=== PATIENT | male | born 1950 | race African-American/Black ===

== ENCOUNTER 2022-06-28 08:37 | Inpatient (IN) | payer BC, MEDICAID ==
[~2022-06-28] VITALS: Ht 177.8 cm; Wt 135.2 kg
[~2022-06-28 08:37] MED LIST: ATEN-42 PO; CINA30 PO; NIFE30TA94 PO; SEVE800T8 PO
[2022-06-28] MEDS ORDERED: SODIUM CHLORIDE 0.9% 1,000 ML IV ONE (08:45)
[2022-06-28 10:24] LABS: BASOPHILS % 1.2 % (0.0-2.0); EOSINOPHILS % 2.3 % (0.0-5.0); HEMATOCRIT. 28.3 % (42.0-52.0); LYMPHOCYTES % 13.6 % (20.0-50.0); MEAN CORPUSCULAR HEMOGLOBIN 24.8 pg (28.0-32.0); MEAN CORPUSCULAR VOLUME 78.3 fL (80.0-94.0); MEAN PLATELET VOLUME 7.7 fl (7.4-10.4); MONOCYTES % 9.8 % (2.0-8.0); NEUTROPHILS % 73.1 % (40.0-76.0); PLATELET 229 x1000/uL (130-400); RED BLOOD CELL COUNT 3.62 mill/uL (4.7-6.1); RED CELL DISTRIBUTION WIDTH 20.2 % (11.6-14.6)
[2022-06-28 10:26] LABS: CHLORIDE 95 mEq/L (98-107)
[2022-06-28 10:28] LABS: INR 1.2; PROTHROMBIN TIME 12.6 sec (9.6-11.0)
[2022-06-28] MEDS ORDERED: VANCOMYCIN 1G PREMIX 200 ML IV ONE (11:15)
[2022-06-28] MEDS ORDERED: PIPERACILLIN/TAZ 3.375G PREMIX 50 ML IV ONE (11:15)
[2022-06-28] MEDS ORDERED: SODIUM CHLORIDE 0.9% 1000ML BAG (SEPSIS BOLUS) IV ONE (11:30)
[2022-06-28] MEDS ORDERED: LIDOCAINE HCL 1% 10 MG/ML 10ML VIAL ONE (13:08)
[2022-06-28] MEDS ORDERED: ONDANSETRON HCL 4MG/2ML INJ IV PRN (13:45)
[2022-06-28] MEDS ORDERED: ACETAMINOPHEN 325MG TABLET PO PRN (13:45)
[2022-06-28 16:00] VITALS: BP 110/62
[2022-06-28 16:42] VITALS: BP 160/47
[2022-06-28 20:00] VITALS: BP 115/70
[2022-06-29] VITALS: BP 96/49
[2022-06-29] MEDS: EPOETIN ALFA-EPBX 4,000 UNIT/ML VIAL SUBCUT SCH (01:28)
[2022-06-29 04:00] VITALS: BP 97/55
[2022-06-29 06:28] LABS: HEMOGLOBIN. 9.7 g/dL (14.0-18.0); MEAN CORPUSCULAR HEMOGLOBIN 25.2 pg (28.0-32.0); MEAN PLATELET VOLUME 7.9 fl (7.4-10.4); PLATELET 205 x1000/uL (130-400); RED BLOOD CELL COUNT 3.85 mill/uL (4.7-6.1)
[2022-06-29 08:00] VITALS: BP 88/46
[2022-06-29] MEDS ORDERED: CEFTRIAXONE 1 G PREMIX 50 ML IV SCH (08:15)
[2022-06-29] MEDS ORDERED: AZITHROMYCIN 500 MG TABLET PO NR (08:30)
[2022-06-29] MEDS: CEFTRIAXONE 1,000 MG in DEXTROSE 5% WATER 50 ML IV SCH (10:04)
[2022-06-29 12:00] VITALS: BP 113/64
[2022-06-29 14:02] LABS: PHOSPHORUS 6.2 mg/dL (2.5-4.9)
[2022-06-29 14:36] LABS: NUCLEATED RED BLOOD CELLS 2 /100 WBC; PLATELET ESTIMATE NORMAL
[2022-06-29 16:00] VITALS: BP 129/78
[2022-06-29 20:00] VITALS: BP 119/77
[2022-06-29 22:49] LABS: HEPATITIS B SURFACE ANTIGEN NEGATIVE
[2022-06-30] VITALS (11 sets, daily range): BP systolic 77–125; BP diastolic 37–78
[2022-06-30 06:42] LABS: BASOPHILS % 1.3 % (0.0-2.0); EOSINOPHILS % 1.8 % (0.0-5.0); HEMATOCRIT. 28.4 % (42.0-52.0); HEMOGLOBIN. 9.2 g/dL (14.0-18.0); MEAN CORPUSCULAR HEMOGLOBIN 25.4 pg (28.0-32.0); MEAN CORPUSCULAR VOLUME 78.3 fL (80.0-94.0); MEAN PLATELET VOLUME 8.7 fl (7.4-10.4); MONOCYTES % 14.7 % (2.0-8.0); NEUTROPHILS % 68.2 % (40.0-76.0); PLATELET 237 x1000/uL (130-400); RED BLOOD CELL COUNT 3.63 mill/uL (4.7-6.1); RED CELL DISTRIBUTION WIDTH 19.6 % (11.6-14.6)
[2022-06-30] MEDS: MIDODRINE HCL 5MG TABLET PO SCH ×3 (08:07→18:52)
[2022-06-30] MEDS: AZITHROMYCIN 250 MG TABLET PO SCH (08:07)
[2022-06-30] MEDS ORDERED: MIDO5TAB4 PO (10:29)
[2022-06-30] MEDS ORDERED: LEVO250T74 MT ×2 (10:29)
[2022-06-30] MEDS: CEFTRIAXONE 1,000 MG in DEXTROSE 5% WATER 50 ML IV SCH (10:39)
[2022-06-30] MEDS ORDERED: DIGOXIN 500MCG/2ML AMP IV NR (17:45)
[2022-06-30] MEDS ORDERED: DIGOXIN 125MCG TABLET PO NR (19:00)
[2022-06-30] MEDS: EPOETIN ALFA-EPBX 4,000 UNIT/ML VIAL SUBCUT SCH (20:11)
[2022-06-30] MEDS ORDERED: ENOXAPARIN 150MG/ML SYR SUBCUT SCH (21:00)
[2022-07-01] VITALS (12 sets, daily range): BP systolic 101–129; BP diastolic 43–78
[2022-07-01] MEDS ORDERED: DIGOXIN 500MCG/2ML AMP IV NR (00:30)
[2022-07-01 07:11] LABS: HEMATOCRIT. 29.8 % (42.0-52.0); HEMOGLOBIN. 9.6 g/dL (14.0-18.0); MEAN CORPUSCULAR HEMOGLOBIN 24.8 pg (28.0-32.0); MEAN CORPUSCULAR VOLUME 77.4 fL (80.0-94.0); PLATELET 234 x1000/uL (130-400); RED BLOOD CELL COUNT 3.85 mill/uL (4.7-6.1); RED CELL DISTRIBUTION WIDTH 19.4 % (11.6-14.6)
[2022-07-01 07:45] LABS: PHOSPHORUS 8.4 mg/dL (2.5-4.9)
[2022-07-01] MEDS: AZITHROMYCIN 250 MG TABLET PO SCH (08:45)
[2022-07-01] MEDS: CEFTRIAXONE 1,000 MG in DEXTROSE 5% WATER 50 ML IV SCH (08:45)
[2022-07-01] MEDS: MIDODRINE HCL 5MG TABLET PO SCH ×4 (08:45→21:16)
[2022-07-01 09:07] LABS: IMMUNOGLOBULIN A 303 mg/dL (61-437); IMMUNOGLOBULIN G 2920 mg/dL (603-1613); IMMUNOGLOBULIN M 73 mg/dL (20-172)
[2022-07-01] MEDS: DILTIAZEM HCL 30MG TABLET PO SCH ×3 (13:33→23:53)
[2022-07-01] MEDS ORDERED: ENOXAPARIN 150MG/ML SYR SUBCUT SCH (15:19)
[2022-07-01 16:44] LABS: NUCLEATED RED BLOOD CELLS 1 /100 WBC; PLATELET ESTIMATE NORMAL
[2022-07-01] MEDS: ENOXAPARIN 150MG/ML SYR SUBCUT SCH (21:17)
[2022-07-02] VITALS: BP 99/46
[2022-07-02 04:00] VITALS: BP 91/50
[2022-07-02] MEDS: DILTIAZEM HCL 30MG TABLET PO SCH ×3 (05:00→18:38)
[2022-07-02 07:03] LABS: HEMATOCRIT. 29.7 % (42.0-52.0); HEMOGLOBIN. 9.5 g/dL (14.0-18.0); MEAN CORPUSCULAR HEMOGLOBIN 24.8 pg (28.0-32.0); MEAN CORPUSCULAR VOLUME 77.7 fL (80.0-94.0); PLATELET 217 x1000/uL (130-400); RED BLOOD CELL COUNT 3.82 mill/uL (4.7-6.1); RED CELL DISTRIBUTION WIDTH 19.9 % (11.6-14.6)
[2022-07-02 07:18] LABS: PHOSPHORUS 7.4 mg/dL (2.5-4.9)
[2022-07-02 08:00] VITALS: BP 102/61
[2022-07-02] MEDS ORDERED: DIGOXIN 125MCG TABLET PO NR (09:30)
[2022-07-02] MEDS: CEFTRIAXONE 1,000 MG in DEXTROSE 5% WATER 50 ML IV SCH (10:06)
[2022-07-02] MEDS: MIDODRINE HCL 5MG TABLET PO SCH ×3 (10:06→18:39)
[2022-07-02] MEDS: AZITHROMYCIN 250 MG TABLET PO SCH (10:14)
[2022-07-02 12:00] VITALS: BP 91/52
[2022-07-02] MEDS ORDERED: SODIUM POLYSTYRENE SULFONATE 15 G/60 ML BOT PO NR (15:00)
[2022-07-02 16:00] VITALS: BP 105/58
[2022-07-02] MEDS: DIGOXIN 125MCG TABLET PO SCH (18:38)
[2022-07-02 20:00] VITALS: BP 105/50
[2022-07-02] MEDS: EPOETIN ALFA-EPBX 4,000 UNIT/ML VIAL SUBCUT SCH (20:43)
[2022-07-02] MEDS: ENOXAPARIN 150MG/ML SYR SUBCUT SCH (20:43)
[2022-07-03] VITALS (17 sets, daily range): BP systolic 92–119; BP diastolic 50–70
[2022-07-03 05:18] LABS: NUCLEATED RED BLOOD CELLS 2 /100 WBC; PLATELET ESTIMATE NORMAL
[2022-07-03] MEDS: DILTIAZEM HCL 30MG TABLET PO SCH ×4 (05:33→17:12)
[2022-07-03] MEDS: AZITHROMYCIN 250 MG TABLET PO SCH (09:00)
[2022-07-03 09:09] LABS: HEMATOCRIT. 28.2 % (42.0-52.0); MEAN CORPUSCULAR HEMOGLOBIN 24.8 pg (28.0-32.0); MEAN CORPUSCULAR VOLUME 77.6 fL (80.0-94.0); MEAN PLATELET VOLUME 7.9 fl (7.4-10.4); PLATELET 217 x1000/uL (130-400); RED BLOOD CELL COUNT 3.63 mill/uL (4.7-6.1); RED CELL DISTRIBUTION WIDTH 19.4 % (11.6-14.6)
[2022-07-03] MEDS: MIDODRINE HCL 5MG TABLET PO SCH ×3 (09:30→17:12)
[2022-07-03 09:58] LABS: PHOSPHORUS 8.4 mg/dL (2.5-4.9)
[2022-07-03 10:56] LABS: PLATELET ESTIMATE NORMAL
[2022-07-03] MEDS: CEFTRIAXONE 1,000 MG in DEXTROSE 5% WATER 50 ML IV SCH (11:37)
[2022-07-03] MEDS: SEVELAMER CARBONATE 800 MG TABLET PO SCH (17:11)
[2022-07-03] MEDS: DIGOXIN 125MCG TABLET PO SCH (17:12)
[2022-07-03] MEDS: ENOXAPARIN 150MG/ML SYR SUBCUT SCH (21:55)
[2022-07-04] VITALS: BP 107/61
[2022-07-04 04:00] VITALS: BP 102/65
[2022-07-04] MEDS: DILTIAZEM HCL 30MG TABLET PO SCH ×4 (06:00→17:37)
[2022-07-04 08:00] VITALS: BP 104/62
[2022-07-04 09:05] LABS: BASOPHILS % 1.4 % (0.0-2.0); EOSINOPHILS % 1.9 % (0.0-5.0); HEMATOCRIT. 28.8 % (42.0-52.0); HEMOGLOBIN. 9.2 g/dL (14.0-18.0); LYMPHOCYTES % 15.7 % (20.0-50.0); MEAN CORPUSCULAR HEMOGLOBIN 24.9 pg (28.0-32.0); MEAN CORPUSCULAR VOLUME 77.6 fL (80.0-94.0); MEAN PLATELET VOLUME 7.9 fl (7.4-10.4); PLATELET 220 x1000/uL (130-400); RED BLOOD CELL COUNT 3.71 mill/uL (4.7-6.1); RED CELL DISTRIBUTION WIDTH 19.7 % (11.6-14.6)
[2022-07-04] MEDS: MIDODRINE HCL 5MG TABLET PO SCH ×3 (09:13→18:15)
[2022-07-04] MEDS: SEVELAMER CARBONATE 800 MG TABLET PO SCH ×3 (09:13→18:14)
[2022-07-04 09:20] LABS: PHOSPHORUS 6.7 mg/dL (2.5-4.9)
[2022-07-04 12:00] VITALS: BP 109/62
[2022-07-04 16:00] VITALS: BP 119/72
[2022-07-04] MEDS: DIGOXIN 125MCG TABLET PO SCH (18:14)
[2022-07-04 20:00] VITALS: BP 115/64
[2022-07-04] MEDS: ENOXAPARIN 150MG/ML SYR SUBCUT SCH (20:17)
[2022-07-05] VITALS (14 sets, daily range): BP systolic 97–127; BP diastolic 45–80
[2022-07-05] MEDS: DILTIAZEM HCL 30MG TABLET PO SCH ×2 (05:35)
[2022-07-05] MEDS: SEVELAMER CARBONATE 800 MG TABLET PO SCH ×3 (06:16→18:05)
[2022-07-05 07:10] LABS: HEMOGLOBIN. 9.2 g/dL (14.0-18.0); MEAN CORPUSCULAR HEMOGLOBIN 24.8 pg (28.0-32.0); MEAN CORPUSCULAR VOLUME 77.7 fL (80.0-94.0); MEAN PLATELET VOLUME 7.8 fl (7.4-10.4); PLATELET 204 x1000/uL (130-400); RED BLOOD CELL COUNT 3.73 mill/uL (4.7-6.1); RED CELL DISTRIBUTION WIDTH 19.4 % (11.6-14.6)
[2022-07-05 08:41] LABS: PHOSPHORUS 8.8 mg/dL (2.5-4.9)
[2022-07-05] MEDS: MIDODRINE HCL 5MG TABLET PO SCH ×3 (09:08→16:19)
[2022-07-05 09:37] LABS: NUCLEATED RED BLOOD CELLS 2 /100 WBC; PLATELET ESTIMATE NORMAL
[2022-07-05] MEDS: ENOXAPARIN 150MG/ML SYR SUBCUT SCH (20:11)
[2022-07-05] MEDS ORDERED: DILTIAZEM HCL 5MG/ML 5ML VIAL IV NR (22:00)
[2022-07-05] MEDS: ACETAMINOPHEN 325MG TABLET PO PRN (22:34)
[2022-07-06] VITALS: BP 106/62
[2022-07-06 04:00] VITALS: BP 145/88
[2022-07-06] MEDS: DILTIAZEM HCL 30MG TABLET PO SCH ×3 (05:49→17:16)
[2022-07-06] MEDS: SEVELAMER CARBONATE 800 MG TABLET PO SCH ×3 (06:24→17:27)
[2022-07-06 07:16] LABS: BASOPHILS % 1.4 % (0.0-2.0); EOSINOPHILS % 2.1 % (0.0-5.0); HEMATOCRIT. 28.9 % (42.0-52.0); HEMOGLOBIN. 9.3 g/dL (14.0-18.0); LYMPHOCYTES % 17.7 % (20.0-50.0); MEAN CORPUSCULAR VOLUME 77.9 fL (80.0-94.0); MEAN PLATELET VOLUME 7.8 fl (7.4-10.4); MONOCYTES % 12.8 % (2.0-8.0); PLATELET 198 x1000/uL (130-400); RED BLOOD CELL COUNT 3.71 mill/uL (4.7-6.1); RED CELL DISTRIBUTION WIDTH 20.5 % (11.6-14.6)
[2022-07-06 08:00] VITALS: BP 104/64
[2022-07-06] MEDS: MIDODRINE HCL 5MG TABLET PO SCH ×3 (08:38→17:16)
[2022-07-06 12:00] VITALS: BP 119/77
[2022-07-06] MEDS: ACETAMINOPHEN 325MG TABLET PO PRN (12:57)
[2022-07-06 16:00] VITALS: BP 142/79
[2022-07-06 20:00] VITALS: BP 112/63
[2022-07-06] MEDS: ENOXAPARIN 150MG/ML SYR SUBCUT SCH (21:06)
[2022-07-07] VITALS (13 sets, daily range): BP systolic 101–130; BP diastolic 54–77
[2022-07-07] MEDS: DILTIAZEM HCL 30MG TABLET PO SCH ×4 (06:00→17:41)
[2022-07-07 06:35] LABS: BASOPHILS % 0.9 % (0.0-2.0); EOSINOPHILS % 1.9 % (0.0-5.0); HEMATOCRIT. 28.1 % (42.0-52.0); MEAN CORPUSCULAR HEMOGLOBIN 25.1 pg (28.0-32.0); MEAN CORPUSCULAR VOLUME 77.8 fL (80.0-94.0); MONOCYTES % 14.7 % (2.0-8.0); NEUTROPHILS % 71.5 % (40.0-76.0); PLATELET 178 x1000/uL (130-400); RED BLOOD CELL COUNT 3.61 mill/uL (4.7-6.1); RED CELL DISTRIBUTION WIDTH 20.4 % (11.6-14.6)
[2022-07-07 07:03] LABS: PHOSPHORUS 8.4 mg/dL (2.5-4.9)
[2022-07-07] MEDS: MIDODRINE HCL 5MG TABLET PO SCH ×3 (09:51→17:42)
[2022-07-07] MEDS ORDERED: APIX5TAB MT (11:43)
[2022-07-07] MEDS ORDERED: CARV6.2548 MT (11:43)
[2022-07-07] MEDS: SEVELAMER CARBONATE 800 MG TABLET PO SCH ×2 (12:53→17:40)
[2022-07-07] MEDS: ENOXAPARIN 150MG/ML SYR SUBCUT SCH (21:23)
[2022-07-08] VITALS: BP 102/56
[2022-07-08 04:00] VITALS: BP 109/61
[2022-07-08] MEDS: DILTIAZEM HCL 30MG TABLET PO SCH ×4 (06:00→17:11)
[2022-07-08 06:27] LABS: HEMATOCRIT. 26.7 % (42.0-52.0); HEMOGLOBIN. 8.8 g/dL (14.0-18.0); MEAN CORPUSCULAR HEMOGLOBIN 25.1 pg (28.0-32.0); MEAN CORPUSCULAR VOLUME 76.4 fL (80.0-94.0); PLATELET 189 x1000/uL (130-400); RED BLOOD CELL COUNT 3.49 mill/uL (4.7-6.1); RED CELL DISTRIBUTION WIDTH 20.1 % (11.6-14.6)
[2022-07-08] MEDS: SEVELAMER CARBONATE 800 MG TABLET PO SCH ×3 (06:54→17:10)
[2022-07-08 07:33] LABS: PHOSPHORUS 7.6 mg/dL (2.5-4.9)
[2022-07-08 08:00] VITALS: BP 103/67
[2022-07-08] MEDS: MIDODRINE HCL 5MG TABLET PO SCH ×3 (08:28→17:13)
[2022-07-08 12:00] VITALS: BP 125/73
[2022-07-08 12:36] LABS: PLATELET ESTIMATE NORMAL
[2022-07-08 16:00] VITALS: BP 106/70
[2022-07-08 20:00] VITALS: BP 110/62
[2022-07-08] MEDS: ENOXAPARIN 150MG/ML SYR SUBCUT SCH (21:22)
[2022-07-09] VITALS (16 sets, daily range): BP systolic 98–129; BP diastolic 61–84
[2022-07-09] MEDS: DILTIAZEM HCL 30MG TABLET PO SCH ×4 (00:33→19:41)
[2022-07-09 06:02] LABS: BASOPHILS % 1.6 % (0.0-2.0); EOSINOPHILS % 1.8 % (0.0-5.0); HEMATOCRIT. 27.4 % (42.0-52.0); HEMOGLOBIN. 8.8 g/dL (14.0-18.0); LYMPHOCYTES % 12.5 % (20.0-50.0); MEAN CORPUSCULAR HEMOGLOBIN 24.8 pg (28.0-32.0); MEAN CORPUSCULAR VOLUME 77.2 fL (80.0-94.0); MEAN PLATELET VOLUME 8.3 fl (7.4-10.4); MONOCYTES % 13.1 % (2.0-8.0); PLATELET 177 x1000/uL (130-400); RED BLOOD CELL COUNT 3.54 mill/uL (4.7-6.1); RED CELL DISTRIBUTION WIDTH 21.1 % (11.6-14.6)
[2022-07-09] MEDS: SEVELAMER CARBONATE 800 MG TABLET PO SCH ×3 (08:02→19:49)
[2022-07-09] MEDS: MIDODRINE HCL 5MG TABLET PO SCH ×3 (08:02→19:49)
[2022-07-09] MEDS: ENOXAPARIN 150MG/ML SYR SUBCUT SCH (22:34)
[2022-07-10] MEDS: DILTIAZEM HCL 30MG TABLET PO SCH ×3 (00:37→13:17)
[2022-07-10 08:00] VITALS: BP 112/72
[2022-07-10] MEDS: SEVELAMER CARBONATE 800 MG TABLET PO SCH ×2 (08:51→13:16)
[2022-07-10] MEDS: MIDODRINE HCL 5MG TABLET PO SCH ×2 (08:51→13:00)
[2022-07-10 12:00] VITALS: BP 112/72
[2022-07-10 14:34] VITALS: BP 122/72
== END 2022-07-10 16:30 | disposition home or self-care (01) | DRG 871 ==
LOC: ER 08:37 → EDBEDREQSVC 10:12 → EDBEDREQTM 10:12 → EDBEDREQ 10:12 → 7EST 13:35 → EDBEDREQTM 13:37 → EDBEDREQ 13:37 → 5WST 07-06 17:32
PROVIDERS: ADMIT Internal Medicine Pulmonary Disease; ATTEND Internal Medicine Pulmonary Disease
PROC: 5A1D70Z Performance of Urinary Filtration, Intermittent, Less than 6 Hours Per Day (ICD-10-PCS; principal; 2022-07-02)
PROC: 5A1D70Z Performance of Urinary Filtration, Intermittent, Less than 6 Hours Per Day (ICD-10-PCS; 2022-07-03)
PROC: 5A1D70Z Performance of Urinary Filtration, Intermittent, Less than 6 Hours Per Day (ICD-10-PCS; 2022-07-05)
PROC: 5A1D70Z Performance of Urinary Filtration, Intermittent, Less than 6 Hours Per Day (ICD-10-PCS; 2022-07-07)
PROC: 5A1D70Z Performance of Urinary Filtration, Intermittent, Less than 6 Hours Per Day (ICD-10-PCS; 2022-07-09)
DX: A41.9 Sepsis, unspecified organism (principal); J18.9 Pneumonia, unspecified organism; N18.6 End stage renal disease; E44.0 Moderate protein-calorie malnutrition; E87.1 Hypo-osmolality and hyponatremia; E87.20 Acidosis, unspecified; B19.10 Unspecified viral hepatitis B without hepatic coma; I42.0 Dilated cardiomyopathy; N25.81 Secondary hyperparathyroidism of renal origin; Z68.41 Body mass index [BMI] 40.0-44.9, adult; I13.2 Hypertensive heart and chronic kidney disease with heart failure and with stage 5 chronic kidney disease, or end stage renal disease; D64.9 Anemia, unspecified; B19.20 Unspecified viral hepatitis C without hepatic coma; E11.22 Type 2 diabetes mellitus with diabetic chronic kidney disease; E78.5 Hyperlipidemia, unspecified; I50.9 Heart failure, unspecified; G47.33 Obstructive sleep apnea (adult) (pediatric); J44.9 Chronic obstructive pulmonary disease, unspecified; I48.91 Unspecified atrial fibrillation; Z79.899 Other long term (current) drug therapy; Z87.891 Personal history of nicotine dependence; Z83.3 Family history of diabetes mellitus; Z99.2 Dependence on renal dialysis; Z82.49 Family history of ischemic heart disease and other diseases of the circulatory system
CPT/HCPCS: 36415; 36573; 71045; 71250; 80048; 80053; 80061; 80162; 82330; 82784; 83605; 83735; 84100; 84145; 85025; 86334; 86705; 86709; 86803; 87340; 90935; 93005; 93306; 97110; 97116; 97162; 97166; 97535; 99291; C1725; C1893; J0696; J0885; J1160; J1650; J2543; J3370; J3490; J7030; J7060